=== PATIENT | male | born 1965 | race Hispanic/Latino ===

== ENCOUNTER → 2022-09-16 | Day surgery (SDC) | payer OTHER ==
[~2022-09-16] MED LIST: ALBUTEROL0.63 MG/3 INH; BREO ELLIPTA 11 EACH INH; CETIRIZINE HCL10 MG PO; FEROSUL325 MG PO; FLOMAX0.4 MG PO; FOLIC ACID0.4 MG PO; LIDOCAINE HCL 2% LOCAL INJ 5 ML SDV VIAL INJ ONE; MIDAZOLAM HCL 2 MG/2 ML VIAL ONE; OXYBUTYNIN CHLOR5 MG PO; POVIDONE IODINE 0.05% 0.05 % ML PO ONE; PRAVASTATIN SOD20 MG PO; PROPOFOL IV EMULSION 10 MG/ML 20 ML VIAL ONE; SIMPONI AR50 MG/4 ML IV; SYNTHROID125 MCG PO; VITAMIN D3125 MCG PO
[2022-09-16 13:39] VITALS: BP 141/86
== END | disposition home or self-care (01) ==
LOC: OR 10:41 → EDSTATUS 14:00
PROVIDERS: ATTEND Internal Medicine Gastroenterology
DX: Z12.11 Encounter for screening for malignant neoplasm of colon (principal); D12.2 Benign neoplasm of ascending colon; D12.3 Benign neoplasm of transverse colon; D12.4 Benign neoplasm of descending colon; K64.8 Other hemorrhoids; K21.9 Gastro-esophageal reflux disease without esophagitis; D64.9 Anemia, unspecified; E03.9 Hypothyroidism, unspecified; J45.909 Unspecified asthma, uncomplicated; N40.0 Benign prostatic hyperplasia without lower urinary tract symptoms; L40.9 Psoriasis, unspecified; R79.89 Other specified abnormal findings of blood chemistry; M19.90 Unspecified osteoarthritis, unspecified site; Z01.810 Encounter for preprocedural cardiovascular examination; Z79.899 Other long term (current) drug therapy; Z68.41 Body mass index [BMI] 40.0-44.9, adult
CPT/HCPCS: 45384; 45385; 93005; J2001; J2250; J2704